=== PATIENT | male | born 1980 | race Caucasian/White ===

== ENCOUNTER 2016-10-07 12:10 | Outpatient (CLI) | payer MEDICAID | END 2016-10-07 12:11 | disposition home or self-care (01) | DX: J45.998 Other asthma (principal) ==

== ENCOUNTER 2017-06-03 15:41 | Outpatient (CLI) | payer MEDICAID | END 2017-06-03 15:42 | disposition critical access hospital (66) | LOC: EMS 15:41 | PROVIDERS: ATTEND Surgery | DX: R55 Syncope and collapse (principal); T63.441A Toxic effect of venom of bees, accidental (unintentional), initial encounter; Y92.511 Restaurant or cafe as the place of occurrence of the external cause; Y99.0 Civilian activity done for income or pay | CPT/HCPCS: A0425; A0429 ==

== ENCOUNTER 2017-06-03 16:02 | Emergency (ER) | payer MEDICAID ==
[2017-06-03] MEDS ORDERED: diphenhydrAMINE INJ 50 MG/ML VIAL IVP STA (16:12)
[2017-06-03] MEDS ORDERED: methylPREDNISolone SUCCINATE 125 MG/2 ML VIAL IVP STA (16:12)
--- NOTE | 2017-06-03 16:12 | ED Physician Documentation ---
History of Present Illness - Stated complaint Stated Complaint: BEE STING - Chief complaint Chief Complaint: General - History obtained from History obtained from: Patient, EMS - History of Present Illness Timing: Other (He was stung by a bee to the right ring finger, he has no significant history of anaphylaxis to bee stings but he developed significant diaphoresis and hypotension, down to 80/40 and was treated with epinephrine and route with resolution of his symptoms. There was never any shortness of breath or rash or angioedema. He is wheezy, but he says he is always wheezing.) Review of Systems Constitutional: denies: Fever, Chills Nose: denies: Rhinorrhea / runny nose, Congestion GI: denies: Abdominal Pain, Abdominal Swelling, Nausea, Vomiting, Diarrhea : reports: Reviewed and negative Skin: reports: Reviewed and negative PD PAST MEDICAL HISTORY - Past Medical History Respiratory: Asthma - Past Surgical History Past Surgical History: No - Present Medications Home Medications: Ambulatory Orders Medication Instructions Recorded Confirmed Epinephrine [Epipen 2-Neal] 0.3 mg IJ ONCE PRN #1 unit 06/03/17 predniSONE [Deltasone] 60 mg PO DAILY 5 Days 06/03/17 - Allergies Allergies/Adverse Reactions: Allergies Allergy/AdvReac Type Severity Reaction Status Date / Time Penicillins Allergy Severe Respiratory Verified 02/17/13 12:42 - Social History Does the pt smoke?: Yes Smoking Status: Current every day smoker Does the pt drink ETOH?: No Does the pt have substance abuse?: No - Immunizations Immunizations are current?: No Immunizations: TDAP >10years/unknown - POLST Patient has POLST: No PD ED PE NORMAL - Vitals Vital signs reviewed: Yes - General General: Alert and oriented X 3, No acute distress - HEENT HEENT: PERRL, EOMI, Pharynx benign - Neck Neck: Supple, no meningeal sign, No bony TTP - Cardiac Cardiac: RRR, No murmur - Respiratory Respiratory: No respiratory distress, Other (Mild expiratory wheezes) - Abdomen Abdomen: Soft, Non tender - Derm Derm: Normal color, Warm and dry - Extremities Extremities: No edema, No calf tenderness / cord - Neuro Neuro: Alert and oriented X 3, Normal speech - Psych Psych: Normal mood, Normal affect Results - Vitals Vitals: Vital Signs - 24 hr 06/03/17 06/03/17 06/03/17 16:02 17:32 18:13 Temperature 36.4 C L Heart Rate 81 73 74 Respiratory 24 20 Rate Blood Pressure 127/75 117/55 L 132/91 H O2 Saturation 100 93 98 Oxygen O2 Source Room air - EKG (time done) 1615 Rate: Rate (enter#) (75) Rhythm: NSR [place]: Normal Intervals: Normal [place] QRS: Normal Ischemia: Normal ST segments Computer interpretation: Agree with computer PD MEDICAL DECISION MAKING - ED course ED course: 36-year-old gentleman with hypotension after a hymenoptera sting, consistent with anaphylaxis. He was treated prior to arrival with IV fluids and epinephrine IM with resolution. We will add on IV steroids and Benadryl and observe him for several hours. Throughout several hours of observation he had no recurrent symptoms or findings on physical examination. Departure - Departure Disposition: 01 Home, Self Care Clinical Impression: Bee sting-induced anaphylaxis Qualifiers: Encounter type: initial encounter Injury intent: accidental or unintentional Qualified Code(s): T63.441A - Toxic effect of venom of bees, accidental ( unintentional), initial encounter Condition: Good Record reviewed to determine appropriate education?: Yes Instructions: ED Anaphylaxis General, EpiPen Auto Injector Dc Prescriptions: predniSONE [Deltasone] 60 mg PO DAILY 5 Days Epinephrine [Epipen 2-Neal] 0.3 mg IJ ONCE PRN #1 unit PRN Reason: Allergy Symptoms Comments: Call your doctor to arrange a follow-up appointment, make the next available appointment. In the interim, return anytime if worse or if new symptoms develop. Your blood pressure was elevated today on check into the emergency department. This does not mean that you have hypertension, it is a common phenomenon to come to the emergency department and have elevated blood pressure. I recommend that she see your primary care physician within the week to have it rechecked when you are feeling better.
[2017-06-03] MEDS ORDERED: methylPREDNISolone SUCCINATE 125 MG/2 ML VIAL ONE (16:23)
[2017-06-03] MEDS ORDERED: diphenhydrAMINE INJ 50 MG/ML VIAL ONE (16:23)
[2017-06-03 18:52] VITALS: BP 140/90
== END 2017-06-03 18:52 | disposition home or self-care (01) ==
LOC: EDUNIT# → ED 16:02
DX: T63.441A Toxic effect of venom of bees, accidental (unintentional), initial encounter (principal); R03.0 Elevated blood-pressure reading, without diagnosis of hypertension; F17.200 Nicotine dependence, unspecified, uncomplicated
CPT/HCPCS: 93005; 96374; 96375; 99284

== ENCOUNTER 2018-07-29 22:25 | Inpatient (IN) | payer MEDICAID ==
[2018-07-29] MEDS ORDERED: SODIUM CHLORIDE 0.9% 1,000 ML IV ONE (22:35)
[2018-07-29] MEDS ORDERED: ASPIRIN CHEW 81 MG TABLET PO STA (22:35)
[2018-07-29] MEDS ORDERED: diltiaZEM INJ 5 MG/ML VIAL IVP STA ×2 (22:35→23:23)
[2018-07-29] MEDS ORDERED: diltiaZEM INJ 125 MG in DEXTROSE 5% 100 ML IV STA (22:35)
[2018-07-29] MEDS ORDERED: MORPHINE 2 MG/ML CARPUJECT IVP STA (22:35)
[2018-07-29 22:43] LABS: BASOPHILS # (AUTO) 0.1 10^3/uL (0.0-0.1); BASOPHILS % (AUTO) 0.5 %; EOSINOPHILS # (AUTO) 0.4 10^3/uL (0.0-0.7); EOSINOPHILS % (AUTO) 2.4 %; HGB - HEMOGLOBIN 16.2 g/dL (14.0-18.0); LYMPHOCYTES # (AUTO) 3.6 10^3/uL (1.5-3.5); LYMPHOCYTES % (AUTO) 21.4 %; MEAN CORPUSCULAR HEMOGLOBIN 29.4 pg (27.0-31.0); MEAN CORPUSCULAR HGB CONC 33.1 g/dL (32.0-36.0); MEAN CORPUSCULAR VOLUME 89.1 fL (80.0-94.0); MEAN PLATELET VOLUME 8.3 fL (7.4-11.4); MONOCYTES # (AUTO) 1.6 10^3/uL (0.0-1.0); MONOCYTES % (AUTO) 9.5 %; NEUTROPHILS # (AUTO) 11.1 10^3/uL (1.5-6.6); NEUTROPHILS % (AUTO) 66.2 %; PLT - PLATELET COUNT 317 10^3/uL (130-450); RED BLOOD COUNT 5.51 10^6/uL (4.70-6.10); RED CELL DISTRIBUTION WIDTH 12.7 % (12.0-15.0); WHITE BLOOD COUNT 16.8 x10^3/uL (4.8-10.8)
--- NOTE | 2018-07-29 22:54 | ED Physician Documentation ---
History of Present Illness - Stated complaint Stated Complaint: CP - Chief complaint Chief Complaint: Cardiac - Additonal information Additional information: 37-year-old male presents the emergency department with chest pain, shortness of breath and a racing heart. The patient's symptoms started this evening and are described as severe. No triggering factors or relieving factors. The patient has had a racing heart and palpitations intermittently for the past year. The patient has not had the symptoms investigated before. Review of Systems Constitutional: reports: Fatigue. denies: Fever Eyes: denies: Discharge Ears: denies: Ear pain Nose: denies: Congestion Throat: denies: Sore throat Cardiac: reports: Chest pain / pressure, Palpitations Respiratory: reports: Dyspnea GI: denies: Abdominal Pain : denies: Dysuria Skin: denies: Rash Musculoskeletal: denies: Neck pain Neurologic: denies: Generalized weakness Psychiatric: denies: Depressed Immunocompromised: denies: Chemotherapy PD PAST MEDICAL HISTORY - Past Medical History Respiratory: Asthma - Past Surgical History Past Surgical History: No - Present Medications Home Medications: Ambulatory Orders Medication Instructions Recorded Confirmed Epinephrine [Epipen 2-Neal] 0.3 mg IJ ONCE PRN #1 unit 06/03/17 predniSONE [Deltasone] 60 mg PO DAILY 5 Days tablet 06/03/17 - Allergies Allergies/Adverse Reactions: Allergies Allergy/AdvReac Type Severity Reaction Status Date / Time Penicillins Allergy Severe Respiratory Verified 07/29/18 23:05 bee sting Allergy Anaphylaxis Uncoded 07/29/18 23:05 - Social History Does the pt smoke?: Yes Smoking Status: Current every day smoker Does the pt drink ETOH?: No Does the pt have substance abuse?: No - Immunizations Immunizations are current?: No Immunizations: TDAP >10years/unknown - POLST Patient has POLST: No PD ED PE NORMAL - General General: Alert and oriented X 3. No: No acute distress (Patient appears uncomfortable) - HEENT HEENT: Atraumatic, PERRL, EOMI - Neck Neck: Supple, no meningeal sign - Cardiac Cardiac: Other (Irregular rhythm with tachycardia) - Respiratory Respiratory: No respiratory distress, Clear bilaterally - Abdomen Abdomen: Soft - Back Back: No CVA TTP - Derm Derm: Normal color - Extremities Extremities: No deformity, Normal ROM s pain, No edema - Neuro Neuro: Alert and oriented X 3, Normal speech - Psych Psych: Normal affect Results - Vitals Vitals: Vital Signs - 24 hr 07/29/18 07/29/18 07/29/18 22:28 22:44 22:51 Temperature 36.7 C Heart Rate 73 158 H 143 H Respiratory 20 19 20 Rate Blood Pressure 130/105 H 135/115 H 125/87 H O2 Saturation 99 100 95 07/29/18 07/29/18 07/29/18 22:52 23:03 23:11 Temperature Heart Rate 157 H 128 H 119 H Respiratory 16 18 18 Rate Blood Pressure 129/98 H 144/95 H 123/98 H O2 Saturation 96 96 95 07/29/18 07/29/18 07/29/18 23:22 23:28 23:32 Temperature Heart Rate 115 H 121 H 116 H Respiratory 16 21 15 Rate Blood Pressure 130/75 113/89 H 110/75 O2 Saturation 96 96 95 07/29/18 07/29/18 07/29/18 23:34 23:35 23:37 Temperature Heart Rate 100 95 79 Respiratory 15 14 Rate Blood Pressure 101/74 66/52 L 82/59 L O2 Saturation 94 95 07/29/18 07/29/18 07/29/18 23:40 23:46 23:54 Temperature Heart Rate 89 83 98 Respiratory 16 14 15 Rate Blood Pressure 92/63 93/58 L 95/71 O2 Saturation 94 95 95 07/30/18 07/30/18 07/30/18 00:00 00:09 00:14 Temperature Heart Rate 94 104 H 86 Respiratory 19 12 17 Rate Blood Pressure 100/74 105/85 H 113/87 H O2 Saturation 94 95 99 07/30/18 07/30/18 07/30/18 00:22 00:54 01:55 Temperature Heart Rate 99 91 122 H Respiratory 21 18 17 Rate Blood Pressure 102/76 104/72 117/82 H O2 Saturation 93 94 94 07/30/18 07/30/18 02:02 02:10 Temperature Heart Rate 123 H 109 H Respiratory 16 20 Rate Blood Pressure 111/92 H 116/80 O2 Saturation 94 92 Oxygen O2 Source Room air - EKG (time done) 22:34 Rate: Rate (enter#) Rhythm: Atrial fibrillation QRS: Normal Ischemia: Non specific changes Other comments: Other comments (Atrial fibrillation with rapid ventricular response and rate related changes) - Labs Labs: Laboratory Tests 07/29/18 07/29/18 07/29/18 22:39 22:39 22:39 WBC 16.8 H RBC 5.51 Hgb 16.2 Hct 49.1 MCV 89.1 MCH 29.4 MCHC 33.1 RDW 12.7 Plt Count 317 MPV 8.3 Neut # (Auto) 11.1 H Lymph # (Auto) 3.6 H [place] # (Auto) 1.6 H Eos # (Auto) 0.4 Baso # (Auto) 0.1 Absolute Nucleated RBC 0.01 Nucleated RBC % 0.1 D-Dimer Sodium 136 Potassium 3.4 L Chloride 99 L Carbon Dioxide 27 Anion Gap 10.0 BUN 14 Creatinine 1.0 Estimated GFR (MDRD) 83 L Glucose 112 H Calcium 9.1 Total Bilirubin 0.6 AST 66 H ALT 147 H Alkaline Phosphatase 95 Troponin I < 0.04 Total Protein 7.7 Albumin 4.4 Globulin 3.3 Albumin/Globulin Ratio 1.3 Lipase 48 TSH Free T4 Ethyl Alcohol < 5.0 07/29/18 07/29/18 07/29/18 22:39 22:39 22:39 WBC RBC Hgb Hct MCV MCH MCHC RDW Plt Count MPV Neut # (Auto) Lymph # (Auto) [place] # (Auto) Eos # (Auto) Baso # (Auto) Absolute Nucleated RBC Nucleated RBC % D-Dimer 219.7 Sodium Potassium Chloride Carbon Dioxide Anion Gap BUN Creatinine Estimated GFR (MDRD) Glucose Calcium Total Bilirubin AST ALT Alkaline Phosphatase Troponin I Total Protein Albumin Globulin Albumin/Globulin Ratio Lipase TSH 1.48 Free T4 0.77 Ethyl Alcohol - Rads (name of study) CTA chest Radiology: Final report received, See rad report (1. No pulmonary emboli seen. 2. Borderline heart size with coronary artery calcifications and possible Trace interstitial fluid) PD MEDICAL DECISION MAKING - ED course ED course: The patient was given a second bolus to help control his heart rate, this unfortunately made the patient hypotensive. The patient was given IV fluids and placed in Trendelenburg. The patient was awake and alert during this episode. This was transient. Once the patient's blood pressure returned to normal his heart rate climbed back up into the mid 100s, the patient was placed back on a drip. The patient will require admission to the hospital for ongoing management of his acute atrial fibrillation with rapid ventricular response. The findings and plan were discussed the patient who understands and agrees to the plan. The case was discussed with the hospitalist Dr. Parada who accepts the patient onto his service. Departure - Departure Disposition: ED Place in Observation Clinical Impression: Atrial fibrillation with RVR
[2018-07-29 22:56] LABS: ALBUMIN 4.4 g/dL (3.2-5.5); ALBUMIN/GLOBULIN RATIO 1.3 (1.0-2.2); ALKALINE PHOSPHATASE 95 IU/L (42-121); ALT ALANINE AMINOTRANSFERASE 147 IU/L (10-60); AST ASPARTATE AMINOTRANSFERASE 66 IU/L (10-42); BILIRUBIN,TOTAL 0.6 mg/dL (0.2-1.0); BUN - BLOOD UREA NITROGEN 14 mg/dL (6-20); CALCIUM 9.1 mg/dL (8.5-10.3); CARBON DIOXIDE - CO2 27 mmol/L (21-32); CHLORIDE 99 mmol/L (101-111); GFR - MDRD 83 (>89); GLUCOSE 112 mg/dL (70-100); LIPASE 48 U/L (22-51); SODIUM 136 mmol/L (135-145); TOTAL PROTEIN 7.7 g/dL (6.7-8.2)
--- NOTE | 2018-07-29 23:08 | XRAY Report ---
Reason: chest pain Procedure Date: 07/29/2018 Accession Number: [id number] / [id number] Procedure: XR - Chest 1 View X-Ray CPT Code: 77088 FULL RESULT: EXAM: CHEST RADIOGRAPHY EXAM DATE: 07/29/2018 10:59 PM. CLINICAL HISTORY: Chest pain. COMPARISON: CHEST 2 VIEW PA/LAT 10/07/2016 12:24 PM. TECHNIQUE: 1 view. FINDINGS: Lungs/Pleura: Low volumes. No definite pneumonia or edema. No gross pneumothorax or large effusion. Mediastinum: Within exam limitations, cardiomediastinal contour is normal. Other: None. IMPRESSION: Mildly hypoventilatory single view chest without definite acute process. RADIA
[2018-07-29] MEDS ORDERED: ENOXAPARIN 100 MG/ML SYRINGE SUBQ STA (23:23)
[2018-07-30] MEDS ORDERED: IOPAMIDOL-300 100 ML VIAL ONE (01:01)
[2018-07-30] MEDS ORDERED: IOPAMIDOL-300 100 ML VIAL IVP ONE (01:52)
[2018-07-30] MEDS ORDERED: SODIUM CHLORIDE FLUSH 0.9% 10 ML SYRINGE IVP PRN (02:07)
[2018-07-30] MEDS ORDERED: ALBUTEROL NEB 2.5 MG/3 ML INH PRN (02:07)
[2018-07-30] MEDS ORDERED: HYDROcod/ACETAM 5/325 MG TABLET PO PRN (02:07)
[2018-07-30] MEDS ORDERED: MORPHINE 2 MG/ML CARPUJECT IVP PRN (02:07)
[2018-07-30] MEDS ORDERED: ONDANSETRON ODT 4 MG TABLET TL PRN (02:07)
--- NOTE | 2018-07-30 02:12 | CT Report ---
Reason: chest pain, soa, increased d-dimer Procedure Date: 07/30/2018 Accession Number: [id number] / [id number] Procedure: CT - Chest Angio (PE) CPT Code: FULL RESULT: EXAM: CT ANGIOGRAM CHEST EXAM DATE: 07/30/2018 01:57 AM. CLINICAL HISTORY: Chest pain and shortness of breath. Elevated d-dimer. COMPARISON: None. TECHNIQUE: Routine helical imaging was performed through the chest in the pulmonary arterial phase. IV Contrast: ISOVUE 300 80mL. Reconstructions: Coronal 3-D MIP reconstructions.Sagittal and coronal. In accordance with CT protocol optimization, one or more of the following dose reduction techniques were utilized for this exam: automated exposure control, adjustment of mA and/or KV based on patient size, or use of iterative reconstructive technique. FINDINGS: Pulmonary Arteries: Diagnostic quality: Adequate through the segmental arteries. No evidence for acute or chronic pulmonary emboli. No evidence of right heart strain. Lungs/Pleura: Bibasilar atelectasis. Possible trace interstitial edema. No pleural effusion. No pneumothorax. Mediastinum: Heart size upper normal. Coronary artery calcifications. Borderline sized bilateral hilar lymph nodes. Thoracic Aorta: Not well enhanced. No aortic aneurysm seen. Upper Abdomen: Fatty liver. Other: None. IMPRESSION: 1. No pulmonary emboli seen. 2. Borderline heart size with coronary artery calcifications and possible trace interstitial edema. 3. Fatty liver. RADIA
[2018-07-30 02:49] LABS: MUDS CUTOFF CONCENTRATIONS CUTOFF CONC BELOW:
[2018-07-30 03:01] LABS: AMPHETAMINE SCREEN,URINE NEGATIVE (NEGATIVE); BENZODIAZEPINES SCREEN, URINE NEGATIVE (NEGATIVE); COCAINE SCREEN URINE NEGATIVE (NEGATIVE); METHADONE SCREEN, URINE NEGATIVE (NEGATIVE); METHAMPHETAMINES SCREEN, URINE NEGATIVE (NEGATIVE); OPIATE SCREEN, URINE POSITIVE (NEGATIVE); OXYCODONE SCREEN, URINE NEGATIVE (NEGATIVE); PROPOXYPHENE SCREEN, URINE NEGATIVE (NEGATIVE); TRICYCLIC ANTIDEPRESSANT,URINE NEGATIVE (NEGATIVE)
[2018-07-30] MEDS: diltiaZEM INJ 125 MG in DEXTROSE 5% 100 ML IV SCH ×3 (03:15→19:46)
--- NOTE | 2018-07-30 03:32 | HISTORY & PHYSICAL EXAMINATION ---
Chief Complaint - Chief Complaint Chief Complaint: Chest pain History of Present Illness - Admitted From Admitted From:: ED - History Obtained From Records Reviewed: ED History obtained from: Patient Exam Limitations: None - History of Present Illness HPI Comment/Other: Patient is a 37-year-old male with no significant past medical history known to him who presents with a chief complaint of chest pain with radiation to the left arm that started earlier today without any known provocation as he was walking around his house. Patient had been complaining of on and off palpitations for the last year or so, but feels that today it is significantly different.He has a history of asthma remotely which has more recently been more active, he is been using his daughter's rescue inhaler and has been experiencing some mild sh ortness of breath. He also had a subjective sinus infection last week, but otherwise has no known triggers for either of the chest pain or the palpitation. He denies association with exertion. 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 In the emergency room he was evaluated for the chest pain and palpitations and an EKG demonstrated atrial fibrillation with rapid ventricular response with initial heart rate in the 160s. The patient was given a loading dose of diltiazem, which was then transitioned to a Cardizem drip. The patient initially tolerated this well but his heart rate started to increase over the 130s and he was given a second bolus in the ED which dropped his blood pressures necessitating IV fluid resuscitation. This has since stabilized and the patient is now on a Cardizem drip of 5. Patient reports that the pain initially improve d when the heart rate was dropped however states that it has since returned and generally he continues to feel uncomfortable. Because of the associated shortness of breath and an elevated d-dimer, patient was sent to CT scan of the chest for PE protocol which came back negative for PE but does show some calcifications of the coronary arteries.His lab work is generally unremarkable with the exception of a white blood cell count of 16 and the aforementioned d-dimer. Chest x-ray is relatively unremarkable. Patient denies any symptoms of CHF such as bilateral lower extremity edema or orthopnea. He has no known previous history of atrial fibrillation, arrhythmia, or other cardiac disease. He does however admit to drinking 3-4 beers per day. He denies any known history of withdrawal but also admits he is never gone several days without drinking since achieving this amount of alcohol consumption. He also reports smoking marijuana nearly continuously as well as smoking 1 pack of cigarettes per day. History - Past Medical History Cardiovascular: denies: None Respiratory: reports: Asthma Neuro: denies: None Endocrine/Autoimmune: denies: None GI: denies: None Psych: denies: None Musculoskeletal: denies: None MRSA Hx?: No - Family & Social History Family History: Father: Cancer (Lung) Living arrangement: At home Living Situation: With spouse/s.o., With family (Patient is a father of a 3-year-old girl) - Substance History Use: Uses substance without health or social issues: Tobacco, Alcohol, Cannabis Abuse: Recurrent use of substance despite neg consequences: Alcohol Dependence: Experiences withdrawal or developed tolerances: NONE Tobacco Details: Cigarettes - POLST Patient has POLST: No POLST Status: Full Code Meds/Allgy - Home Medications Home Medications: Ambulatory Orders Medication Instructions Recorded Confirmed Epinephrine [Epipen 2-Neal] 0.3 mg IJ ONCE PRN #1 unit 06/03/17 predniSONE [Deltasone] 60 mg PO DAILY 5 Days tablet 06/03/17 - Allergies Allergies/Adverse Reactions: Allergies Allergy/AdvReac Type Severity Reaction Status Date / Time Penicillins Allergy Severe Respiratory Verified 07/29/18 23:05 bee sting Allergy Anaphylaxis Uncoded 07/29/18 23:05 Review of Systems - Constitutional Constitutional: denies: Fever, Chills, Diaphoresis, Weight gain, Weight loss - Cardiovascular Cariovascular: reports: Irregular heart rate, Palpitations, Chest pain. denies: Edema, Orthopnea - Respiratory Respiratory: reports: SOB at rest, SOB with exertion. denies: Cough - Gastrointestinal Gastrointestinal: denies: Abdominal pain Prior Level of Functionality: Independent Exam - Vital Signs Reviewed Vital Signs: Yes Vital Signs: Vital Signs x48h Temp Pulse Resp BP Pulse Ox 07/30/18 02:32 126 H 16 117/87 H 93 07/30/18 02:10 109 H 20 116/80 92 07/30/18 02:02 123 H 16 111/92 H 94 07/30/18 01:55 122 H 17 117/82 H 94 07/30/18 00:54 91 18 104/72 94 07/30/18 00:22 99 21 102/76 93 07/30/18 00:14 86 17 113/87 H 99 07/30/18 00:09 104 H 12 105/85 H 95 07/30/18 00:00 94 19 100/74 94 07/29/18 23:54 98 15 95/71 95 07/29/18 23:46 83 14 93/58 L 95 07/29/18 23:40 89 16 92/63 94 07/29/18 23:37 79 82/59 L 07/29/18 23:35 95 14 66/52 L 95 07/29/18 23:34 100 15 101/74 94 07/29/18 23:32 116 H 15 110/75 95 07/29/18 23:28 121 H 21 113/89 H 96 07/29/18 23:22 115 H 16 130/75 96 07/29/18 23:11 119 H 18 123/98 H 95 07/29/18 23:03 128 H 18 144/95 H 96 07/29/18 22:52 157 H 16 129/98 H 96 07/29/18 22:51 143 H 20 125/87 H 95 07/29/18 22:44 158 H 19 135/115 H 100 07/29/18 22:28 36.7 C 73 20 130/105 H 99 - Physical Exam General Appearance: positive: Mild distress Eyes Bilateral: positive: Normal inspection Neck: positive: Nml inspection, Thyroid nml Respiratory: positive: Chest non-tender, No respiratory distress, Breath sounds nml. negative: Wheezes, Rales, Rhonchi Cardiovascular: positive: No murmur, No gallop, Irregularly irregular, Tachycardia Peripheral Pulses: positive: 2+ Abdomen: positive: Non-tender, No organomegaly, Nml bowel sounds, No distention Skin: positive: Color nml Extremities: positive: Non-tender, No pedal edema Neurologic/Psychiatric: positive: Oriented x3 Conclusion/Plan - Problem List (1) Atrial fibrillation with RVR Conclusion/Plan: The trigger for the patient's atrial fibrillation not quite known at this point. However, he is certainly in true atrial fibrillation with a rapid ventricular response requiring infusion therapy of Cardizem, requiring ICU placement. We will continue the Cardizem drip initiated in the emergency department, closely monitoring blood pressure and heart rate. Once heart rate is controlled can con vert to oral Cardizem. Given his young age, and the presumed new diagnosis, he may be a candidate for anticoagulation. An echocardiogram has been ordered for the morning to evaluate for the underlying cause and will likely need a referral to cardiology outpatient upon discharge. (2) Chest pain Conclusion/Plan: Pain is secondary to increased heart rate, as it does seem to improve when heart rate is better controlled. We will repeat one more set of cardiac enzymes to rule out any increase in troponin levels, have also ordered nitroglycerin given the findings of coronary calcifications on the CT scan. He may need a stress test but would recommend holding off until rate is better controlled. Qualifiers: Chest pain type: precordial pain Qualified Code(s): R07.2 - Precordial pain (3) Alcoholism /alcohol abuse Conclusion/Plan: Patient admits to heavy alcohol use but does not have any recollection of alcohol withdrawal. I will start with as needed Ativan and may need CIWA protocol pending clinical course. (4) Tobacco abuse Conclusion/Plan: Patient counseled to quit and provided nicotine patch (5) Asthma Conclusion/Plan: Patient does not currently using an inhaled corticosteroid, will provide albuterol as needed Qualifiers: Asthma severity: unspecified severity Asthma persistence: intermittent Asthma complication type: uncomplicated Qualified Code(s): J45.20 - Mild intermittent asthma, uncomplicated (6) Elevated transaminase level Conclusion/Plan: 2 potential etiologies include fatty liver as seen on the CT scan as well as alcoholism. Could consider hepatitis panel but given the 2 likely sources will hold off on this for now outpatient as this would not likely change the hospital course. - Lab Results Fish Bones: 07/29/18 22:39 07/29/18 22:39 - Diagnostic Imaging Results Diagnostic Imaging Results: positive: Final report reviewed, Read independently - EKG Results EKG Interpreted Independently: Yes EKG Comparison: No prior EKG Core Measures - Anticipated LOS I expect patient to be DC'd or transferred within 96 hours.: Yes - DVT/VTE - Prophylaxis VTE/DVT Device ordered at admit?: Yes Not Ordered - Low Risk: Low Risk VTE/DVT Prophylaxis med ordered at admit?: Yes
[2018-07-30] MEDS: NITROGLYCERIN SL 0.4 MG TABLET SL PRN ×3 (03:53→04:27)
[2018-07-30] MEDS: LORazepam 0.5 MG TABLET PO PRN ×4 (04:06→20:02)
[2018-07-30] MEDS ORDERED: LORazepam 2 MG/ML VIAL IVP PRN (04:26)
[2018-07-30] MEDS ORDERED: LEVALBUTEROL 1.25 MG/3 ML NEB INH PRN (04:26)
[2018-07-30] MEDS ORDERED: LEVALBUTEROL 1.25 MG/3 ML NEB INH ONE (04:28)
[2018-07-30 04:59] LABS: ALBUMIN/GLOBULIN RATIO 1.4 (1.0-2.2); BILIRUBIN,TOTAL 0.8 mg/dL (0.2-1.0); CALCIUM 8.6 mg/dL (8.5-10.3); CREATININE 0.8 mg/dL (0.6-1.2); MAGNESIUM 1.9 mg/dL (1.7-2.8); PHOSPHORUS 3.4 mg/dL (2.5-4.6); TOTAL PROTEIN 6.8 g/dL (6.7-8.2)
[2018-07-30 05:01] LABS: CHOL/HDL RATIO 3.1 (<5.0); CHOLESTEROL 135 mg/dL; HDL CHOLESTEROL 44 mg/dL; LDL CHOLESTEROL,CALCULATED 69 mg/dL; LDL/HDL RATIO 1.6 (<3.6); VLDL CHOLESTEROL 22 mg/dL
[2018-07-30] MEDS: NICOTINE 14 MG PATCH TOP SCH (08:19)
[2018-07-30] MEDS: FAMOTIDINE 20 MG TABLET PO SCH ×2 (08:19→20:02)
[2018-07-30] MEDS: SODIUM CHLORIDE FLUSH 0.9% 10 ML SYRINGE IVP SCH ×2 (08:20→19:46)
[2018-07-30] MEDS: IBUPROFEN 400 MG TABLET PO PRN ×3 (08:36→20:02)
[2018-07-30] MEDS ORDERED: ENOXAPARIN 40 MG/0.4 ML SYRINGE SUBQ SCH (09:00)
[2018-07-30] MEDS: ASPIRIN EC 325 MG TABLET PO SCH (15:50)
[2018-07-30] MEDS: CARVEDILOL 12.5 MG TABLET PO SCH ×2 (15:51→20:03)
--- NOTE | 2018-07-30 17:01 | Discharge Plan ---
Discharge Plan Disposition: 02 Transfer Acute Care Hosp No Smoking: If you smoke, Please STOP! Call for help. Follow-up with: EROS DAVISON [Primary Care Provider] -
--- NOTE | 2018-07-30 17:18 | PROVIDER PROGRESS NOTE ---
Hospitalist Cross-cover Note - Cross-Cover Note Cross-Cover Note: The patient reported to me: He was told of being HTN but took no meds for 1 and 1/2 years. He had no W/U for his "palpitations" which he has had for 1 year. There has been no further CP since the last one at 3 am. Echo shows LVEF 25%. This may be from global coronary ischemia, tachycardia- induced, from untreated HTN, or alcoholic cardiomyopathy. Will increase Lovenox to therapeutic dose, for angina and Afib (CHADS score= 2, for CHF and HTN). Will add Coreg, start ASA, YUAN and Spironolactone. Will arrange for transfer for a coronary angio. I discussed all the above with Pt and answered his questions to his satisfaction.
[2018-07-30] MEDS: LISINOPRIL 5 MG TABLET PO SCH (18:14)
[2018-07-30] MEDS: ENOXAPARIN 80 MG/0.8 ML SYRINGE SUBQ SCH (20:03)
[2018-07-30] MEDS ORDERED: ENOXAPARIN 80 MG/0.8 ML SYRINGE SUBQ SCH (21:00)
[2018-07-31] MEDS: SODIUM CHLORIDE FLUSH 0.9% 10 ML SYRINGE IVP SCH ×3 (00:51→18:17)
[2018-07-31 04:51] LABS: ALBUMIN 3.4 g/dL (3.2-5.5); ALBUMIN/GLOBULIN RATIO 1.2 (1.0-2.2); BILIRUBIN,TOTAL 1.1 mg/dL (0.2-1.0); CALCIUM 8.7 mg/dL (8.5-10.3); CREATININE 0.7 mg/dL (0.6-1.2); MAGNESIUM 2.1 mg/dL (1.7-2.8); PHOSPHORUS 2.7 mg/dL (2.5-4.6); TOTAL PROTEIN 6.3 g/dL (6.7-8.2)
[2018-07-31] MEDS: LORazepam 0.5 MG TABLET PO PRN (08:08)
[2018-07-31] MEDS: FAMOTIDINE 20 MG TABLET PO SCH (08:09)
[2018-07-31] MEDS: ASPIRIN EC 325 MG TABLET PO SCH (08:10)
[2018-07-31] MEDS: CARVEDILOL 12.5 MG TABLET PO SCH (08:10)
[2018-07-31] MEDS: IBUPROFEN 400 MG TABLET PO PRN (08:10)
[2018-07-31] MEDS: NICOTINE 14 MG PATCH TOP SCH (08:12)
[2018-07-31] MEDS: ENOXAPARIN 80 MG/0.8 ML SYRINGE SUBQ SCH (10:33)
--- NOTE | 2018-07-31 15:19 | CARDIAC PROCEDURE NOTE ---
DATE OF SERVICE: 07/31/2018 Physician: Lily Nice MD INDICATION: Chest pain. CARDIAC RISK FACTORS 1. Male gender. 2. Smoking history. 3. Possible hypertension history. 4. Unknown cholesterol status. After signing informed consent, the patient performed exercise testing on a Ino protocol along with nuclear myocardial imaging. Resting heart rate 105, in atrial fibrillation. Peak heart rate 158, in atrial fibrillation (87% predicted maximum heart rate for age). Resting blood pressure 140/80, peak blood pressure 160/80. RESTING EKG: Atrial fibrillation with a rate of 105, right axis deviation, LVH voltage, scooping ST segments inferolaterally, flat T-waves in leads II, III, aVF and V3 through V6. The patient exercised for 3 minutes and 25 seconds on a Ino protocol. He achieved a peak heart rate of 156 (87% PMHR), and 5 METS. The patient had mild to moderate shortness of breath at peak, no chest pain during the test. Normal heart rate and blood pressure response to exercise. Shortness of breath resolved after 2-3 minutes of recovery. PEAK EKG: No new ST segment or T-wave changes. IMPRESSION 1. Poor exercise tolerance. 2. Atrial fibrillation with rapid ventricular response. 3. Abnormal resting EKG with respect to ST and T-waves; therefore cannot comment on any new ischemic EKG changes. 4. Nuclear images reported separately. cc: Pavel Campbell MD TD: 07/31/2018 15:06 MTDD
--- NOTE | 2018-07-31 16:27 | Nuclear Medicine Report ---
Reason: CP,Cardiomyopathy Procedure Date: 07/31/2018 Accession Number: [id number] / [id number] Procedure: NM - Myocardial Perfusion STR/RST CPT Code: FULL RESULT: EXAM: SINGLE-ISOTOPE EXERCISE STRESS TEST. SINGLE-ISOTOPE AND ONE-DAY REST/STRESS MYOCARDIAL PERFUSION SCANS WITH TOMOGRAPHIC IMAGING, QUANTITATIVE ANALYSIS, WALL MOTION ANALYSIS AND CALCULATION OF EJECTION FRACTION. EXAM DATE: 07/31/2018 04:04 PM. CLINICAL HISTORY: Chest pain, cardiomyopathy. COMPARISON: None available. TECHNIQUE: A rest myocardial perfusion scan was done with tomography after the intravenous administration of 9.8 mCi Tc-99m sestamibi. After an appropriate delay, a treadmill exercise stress was performed according to department protocol. The patient exercised for 3 minutes and 25 seconds. The maximum heart rate was 158 bpm, which was 87% of the maximum predicted heart rate of 181 bpm. At approximately peak heart rate, 40.3 mCi of Tc-99m sestamibi was injected for stress myocardial perfusion scan. Motion correction was applied when appropriate. Gated tomographic images were obtained for wall motion analysis and computation of left ventricular ejection fraction. FINDINGS: EKG findings are reported separately. There is a moderate severity fixed apical perfusion defect. There is a mild severity fixed defect in the distal anteroseptal wall. No convincing significant reversible perfusion defects. Computer analysis: Summed stress score 10 Summed rest score 7 Summed difference score 3 Wall motion analysis demonstrates diffuse hypokinesis. The left ventricular end-diastolic volume is 174 cc. The left ventricular end-systolic volume is 131 cc. The left ventricular ejection fraction is calculated to be 25%. IMPRESSION: 1. Moderate severity fixed apical perfusion defect. Mild severity fixed defect in the distal anteroseptal wall. No convincing significant reversible perfusion defects based on visual analysis. 2. Abnormal left ventricular ejection fraction of 25%. 3. Diffuse hypokinesis. 4. Dilated left ventricle. 5. Based on computer analysis, moderately abnormal study with mild ischemia. RADIA
--- NOTE | 2018-07-31 16:51 | Discharge Plan ---
Discharge Plan Disposition: Home, Self Care Condition: Fair Prescriptions: Nitroglycerin [Nitrostat] 0.4 mg SL Q5MIN PRN #100 tablet PRN Reason: Chest Pain Albuterol Sulfate [Proair Hfa Inhaler] 2 puffs INH BID PRN #1 hfa.aer.ad PRN Reason: SOA Apixaban [Eliquis] 5 mg PO BID #60 tablet Aspirin [Aspirin EC] 81 mg PO DAILY #30 tablet. Atorvastatin [Lipitor] 10 mg PO QPM #30 tablet Carvedilol [Coreg] 12.5 mg PO BID #60 tablet Lisinopril [Zestril] 2.5 mg PO QPM #15 tablet LORazepam [Ativan] 1 mg PO Q12H PRN #4 tablet PRN Reason: Anxiety Nicotine 14 mg Patch [Nicoderm] 1 patch TOP DAILY #14 patch Spironolactone 12.5 mg PO MOWEFR #15 tablet Diet: Cardiac Activity Restrictions: No heavy lifting, no stair climbing Shower Restrictions: No Driving Restrictions: No Instruction Topics: Heart Failure, Heart Failure Warning Signs, Heart Failure Tracking Weight, Heart Failure Diet Changes, Heart Failure Evaluate, Atrial Fibrillation, Stroke Prevent Live W Atrial Fib, CAD, Nitroglycerin sublingual tablets Additional Instructions or Follow Up instructions: You were admitted with chest pain, new Afib and tests showed you have a weak he art muscle and abnormal stress test, which means you most likely have coronary artery blockages. You have been started on new medications for your heart and the abnormal heart rhythm. It is important that you take these as prescribed and that you stop smoking cigarettes and stop drinking alcohol in excess. You should see your PCP in follow-up WITHIN A WEEK, for possible medication adjustments and to be referred to a [employer] Consultant and for an outpatient coronary angiogram. Until you have the coronary angiogram you should restrict your activities to slow walking, standing is OK with the ability to sit whenever you are fatigued and you should not carry anything >10 lbs and you may NOT climb flights of stairs whatsoever. If you have new or worsening symptoms, come to the ER. No Smoking: If you smoke, Please STOP! Call for help. Follow-up with: EROS DAVISON [Primary Care Provider] -
[2018-07-31] MEDS ORDERED: INSULIN ASPART 300 UNIT/3 ML PEN SUBQ SCH (17:00)
[2018-07-31] MEDS: LISINOPRIL 5 MG TABLET PO SCH (17:16)
[2018-07-31 18:25] VITALS: BP 107/77
--- NOTE | 2018-08-05 14:33 | DISCHARGE SUMMARY ---
Physician: Lily Nice MD DATE OF ADMISSION: 07/30/2018 DATE OF DISCHARGE: 07/31/2018 HISTORY OF PRESENT ILLNESS: This is a 37-year-old white male with a history of smoking, remote methamphetamine abuse, heavy alcohol use, asthma in childhood, and possible hypertension. The patient presented with complaints of chest pain with radiation to the left arm that occurred while he was walking. He also reported palpitations that occurred on and off for a year, but he has had no medical evaluation of those. He reported his last doctor's visit was a year and a half ago, and he was told he had hypertension, but has not been on any blood pressure medicines. He denied any dyspnea on exertion, orthopnea, leg edema, dizziness complaints or syncope. In the emergency room, he was found to be in Afib with a rapid rate, and he was treated with IV diltiazem and required an IV diltiazem drip and was admitted to the ICU. HOSPITAL COURSE AND DISCHARGE DIAGNOSES 1. Atrial fib with rapid ventricular response (RVR). There had been no prior history of Afib, therefore this was considered new onset, but, because he had a description of palpitations, the Afib may have occurred in his past. He was placed on the diltiazem drip and also started on oral medications for heart control. The diltiazem was tapered to off by the second day and he was also started on Eliquis, carvedilol, and was advised to have further cardiac followup. 2. Chest pain. The patient had no further episodes of chest pain as his heart rate became under control. The patient did have troponin labs done that were not detectable (less than 0.04) x3. He had an inpatient stress test with treadmill exercise and nuclear imaging. He was able to achieve 87% PMHR and 5 METs and had moderate shortness of breath but no chest pain. The nuclear report, however, showed a moderate fixed apical perfusion defect, mild fixed defect in the distal anteroseptal wall, and moderately abnormal study with mild ischemia. Of note, were findings of diffuse hypokinesis, a dilated left ventricle, and an EF of 25%. He also had lipid testing done that showed a total cholesterol of 135, LDL 69, HDL 22, and triglycerides 112. He was started on a statin. 3. Acute systolic heart failure, [place] Heart Association class II. The patient had an Echo done (even before the stress testing), which also showed LV dilation, global hypokinesis, and EF of 25%. He was started on escalating doses of Carvedilol, an YUAN inhibitor, Lovenox at therapeutic doses until he ruled out, daily aspirin, and low-dose statin. With the results of the stress test as described above, he should undergo outpatient angiography for further coronary artery disease evaluation. The patient was advised to have light activity until seen by a Metal Products Viewer or until having the coronary angiogram. I reached out to the on-call Metal Products Viewer at [facility] in [place], where the patient was considering having his angiogram and Cardiology followup; that Metal Products Viewer and I discussed his case. Since he did not have elevated troponins, the patient was not transferred directly for an angiogram. The stress test was advised to be done here by that script manager (Dr. Mauricio). He also advised low-dose statin, good heart rate control, anticoagulation for at least a month and then to be considered for elective cardioversion. 4. Alcohol abuse. The patient reported intake of 4 or greater 12-ounce cans of beer every day. He was on a CIWA watch protocol while here, did not have any signs of withdrawal, and received Ativan only once for anxiety. The patient was advised to discontinue heavy alcohol use, which may be the etiology for his new cardiomyopathy. 5. Tobacco abuse. The patient was offered a nicotine patch while here. The patient was advised to stop smoking because of the cardiac results. He appeared motivated to do this as an outpatient. 7. Asthma. The patient reported intermittently using his young daughter's inhaler before this admission. He was prescribed his own rescue inhaler to use if needed. 8. Elevated liver function tests. The patient had admission AST of 66, ALT 147, and GGT of 92. There was a normal bilirubin and normal alkaline phosphatase. These were presumed to be elevated from alcohol use or potentially a fatty liver. LABORATORIES AND IMAGING: Reviewed and summarized above. CONDITION AT DISCHARGE: Stable. PHYSICAL EXAMINATION VITAL SIGNS: Blood pressure 104/88, pulse of 87-108, in Afib. Afebrile. Room air saturation 96%. HEENT: Dark bags under his eyes, moist oral mucosa, poor dentition. NECK: Without JVD or carotid bruits. CHEST: Clear. HEART: Sounds normal. ABDOMEN: Soft. No organomegaly. No tenderness. EXTREMITIES: No clubbing, cyanosis, edema. NEUROLOGIC: Intact. FOLLOWUP: Patient was given detailed instructions, and to have followup with his PCP within a week, and for referral to a Metal Products Viewer and for a coronary angiogram. CODE STATUS: FULL CODE. TIME REQUIRED TO COMPLETE THIS ENTIRE DISCHARGE, CHART REVIEW, PATIENT EDUCATION, PRESCRIPTION MEDICATIONS, DICTATION: 60 minutes. cc: Pavel Campbell MD TD: 08/05/2018 13:01 MTDD
== END 2018-07-31 18:00 | disposition home or self-care (01) | DRG 308 ==
LOC: ED 22:25 → ICU 07-30 02:08
PROVIDERS: ADMIT Family Medicine Sports Medicine; ATTEND Internal Medicine
DX: I48.91 Unspecified atrial fibrillation (principal); I50.21 Acute systolic (congestive) heart failure; R07.2 Precordial pain; I95.2 Hypotension due to drugs; T46.1X5A Adverse effect of calcium-channel blockers, initial encounter; Y92.238 Other place in hospital as the place of occurrence of the external cause; I11.0 Hypertensive heart disease with heart failure; I25.119 Atherosclerotic heart disease of native coronary artery with unspecified angina pectoris; I42.9 Cardiomyopathy, unspecified; F10.10 Alcohol abuse, uncomplicated; F41.9 Anxiety disorder, unspecified; F17.210 Nicotine dependence, cigarettes, uncomplicated; J45.20 Mild intermittent asthma, uncomplicated; K76.0 Fatty (change of) liver, not elsewhere classified; Z87.898 Personal history of other specified conditions
CPT/HCPCS: 36415; 71045; 71275; 78452; 80048; 80053; 80061; 80306; 80320; 82977; 83690; 83721; 83735; 84100; 84439; 84443; 84484; 85025; 85379; 87150; 93005; 93017; 93306; 94640; 96365; 96375; 96376; 99284; 99285

== ENCOUNTER 2019-07-17 11:30 | Emergency (ER) | payer OTHER, MEDICAID ==
[2019-07-17 11:50] VITALS: BP 118/81
--- NOTE | 2019-07-17 11:58 | ED Physician Documentation ---
History of Present Illness - Stated complaint Stated Complaint: RT FOREARM SWELLING - Chief complaint Chief Complaint: Ext Problem - History obtained from History obtained from: Patient - History of Present Illness Timing: Yesterday - Additonal information Additional information: This is a 38-year-old man who works at [employer]. He was out in the ice closet yesterday when a sarita of wind caught the door to the ice closet and slammed it shut on him. He sought coming and got his right arm up to block the blow. Did not hit him in his head and he was not knocked out. Denies numbness or tingling into the fingers. Review of Systems Skin: reports: Abrasion (s), Other (Bruising and swelling) Musculoskeletal: reports: Extremity swelling Neurologic: denies: Generalized weakness, Numbness PD PAST MEDICAL HISTORY - Past Medical History Cardiovascular: MS, Atrial fibrillation Respiratory: Asthma : None HEENT: None Derm: None - Past Surgical History Past Surgical History: No - Present Medications Home Medications: Ambulatory Orders Medication Instructions Recorded Confirmed Albuterol Sulfate [Proair Hfa 2 puffs INH BID PRN #1 hfa.aer.ad 07/31/18 Inhaler] Apixaban [Eliquis] 5 mg PO BID #60 tablet 07/31/18 Aspirin [Aspirin EC] 81 mg PO DAILY #30 tablet. 07/31/18 Atorvastatin [Lipitor] 10 mg PO QPM #30 tablet 07/31/18 Carvedilol [Coreg] 12.5 mg PO BID #60 tablet 07/31/18 LORazepam [Ativan] 1 mg PO Q12H PRN #4 tablet 07/31/18 Lisinopril [Zestril] 2.5 mg PO QPM #15 tablet 07/31/18 Nicotine 14 mg Patch [Nicoderm] 1 patch TOP DAILY #14 patch 07/31/18 Nitroglycerin [Nitrostat] 0.4 mg SL Q5MIN PRN #100 tablet 07/31/18 Spironolactone 12.5 mg PO MOWEFR #15 tablet 07/31/18 - Allergies Allergies/Adverse Reactions: Allergies Allergy/AdvReac Type Severity Reaction Status Date / Time bee venom protein (honey bee) Allergy Severe Anaphylaxis Verified 07/30/18 08:06 Penicillins Allergy Severe Respiratory Verified 07/29/18 23:05 bee sting Allergy Anaphylaxis Uncoded 07/29/18 23:05 - Social History Does the pt smoke?: Yes Smoking Status: Current every day smoker Does the pt drink ETOH?: No Does the pt have substance abuse?: No - Immunizations Immunizations are current?: No Immunizations: TDAP >10years/unknown - POLST Patient has POLST: No POLST Status: Full Code PD ED PE NORMAL - Vitals Vital signs reviewed: Yes - General General: Alert and oriented X 3 - HEENT HEENT: Atraumatic - Cardiac Cardiac: RRR - Respiratory Respiratory: No respiratory distress - Extremities Extremities: Other (Minor abrasion to the right forearm with underlying bruising and swelling. No pain with palpation down the Radius or ulna. Is a 2+ radial pulse. Full range of motion about the wrist. He is able to make a fist abduct the pinky and thumb and sensation is intact to light touch in all digits.) - Neuro Neuro: Alert and oriented X 3, No motor deficit, No sensory deficit Results - Vitals Vitals: Vital Signs - 24 hr 07/17/19 11:46 Temperature 36.5 C Heart Rate 71 Respiratory 16 Rate Blood Pressure 118/81 H O2 Saturation 97 Oxygen O2 Source Room air PD MEDICAL DECISION MAKING - ED course Complexity details: d/w patient ED course: No evidence of any significant underlying injury. He does have some bruising and hematoma. Counseled on the natural progression of this. Recommended not to use ibuprofen due to Eliquis but only Tylenol and ice to help with the pain. Departure - Departure Disposition: 01 Home, Self Care Clinical Impression: Hematoma and contusion Condition: Good Instructions: ED Hematoma Follow-Up: Daniel Negron PA-C [Primary Care Provider] - Comments: Ice for comfort. Tylenol for pain. Follow-up with your doctor if needed for continued pain.
== END 2019-07-17 12:26 | disposition home or self-care (01) ==
LOC: ED 11:30
DX: S50.811A Abrasion of right forearm, initial encounter (principal); S50.11XA Contusion of right forearm, initial encounter; W23.0XXA Caught, crushed, jammed, or pinched between moving objects, initial encounter; Y93.89 Activity, other specified; Y92.511 Restaurant or cafe as the place of occurrence of the external cause; Y99.0 Civilian activity done for income or pay; I48.91 Unspecified atrial fibrillation; Z79.01 Long term (current) use of anticoagulants; Z79.82 Long term (current) use of aspirin; F17.200 Nicotine dependence, unspecified, uncomplicated
CPT/HCPCS: 1040M; 99281; 99282

== ENCOUNTER 2019-11-15 14:13 | Outpatient (CLI) | payer MEDICAID ==
[2019-11-15 18:31] LABS: CALCIUM 8.9 mg/dL (8.5-10.3); CREATININE 0.9 mg/dL (0.6-1.2)
== END 2019-11-15 23:59 | disposition home or self-care (01) ==
LOC: LAB.N 14:13
PROVIDERS: ATTEND Registered Nurse
DX: I42.8 Other cardiomyopathies (principal); I51.9 Heart disease, unspecified
CPT/HCPCS: 36415; 80048

== ENCOUNTER 2020-07-17 22:34 | Emergency (ER) | payer MEDICAID ==
[2020-07-17 22:39] VITALS: BP 141/98
[2020-07-17] MEDS ORDERED: IBUPROFEN 600 MG TABLET PO STA (22:48)
[2020-07-17] MEDS ORDERED: HYDROcod/ACETAM 5/325 MG TABLET PO STA (22:48)
[2020-07-17] MEDS ORDERED: HYDROcod/ACET 5/325 Prepack 4 PO STA (22:48)
--- NOTE | 2020-07-17 22:51 | ED Physician Documentation ---
History of Present Illness - Stated complaint Stated Complaint: TOOTH PX - Chief complaint Chief Complaint: Heent - History obtained from History obtained from: Patient - Additonal information Additional information: Patient comes emergency department complaining of pain in his right maxillary wisdom tooth. He states that it has been erupted for some time and that he has developed extensive decay, followed by breakage of the tooth. He states he has an appointment in 1 week from today to get the tooth extracted, but that it began to hurt quite badly tonight. Patient states that he has not had any fevers or facial swelling. No drainage from the tooth area. No other complaints at this time. Review of Systems Ten Systems: 10 systems reviewed and negative Constitutional: reports: Reviewed and negative Eyes: reports: Reviewed and negative Ears: reports: Reviewed and negative Nose: reports: Reviewed and negative Throat: reports: Dental pain / toothache. denies: Oral lesions / sores, Sore throat Cardiac: reports: Reviewed and negative Respiratory: reports: Reviewed and negative GI: reports: Reviewed and negative : reports: Reviewed and negative Skin: reports: Reviewed and negative Musculoskeletal: reports: Reviewed and negative Neurologic: reports: Reviewed and negative Psychiatric: reports: Reviewed and negative Endocrine: reports: Reviewed and negative Immunocompromised: reports: Reviewed and negative PD PAST MEDICAL HISTORY - Past Medical History Cardiovascular: PR, Atrial fibrillation Respiratory: Asthma : None HEENT: None Derm: None - Past Surgical History Past Surgical History: No - Present Medications Home Medications: Ambulatory Orders Medication Instructions Recorded Confirmed Albuterol Sulfate [Proair Hfa 2 puffs INH BID PRN #1 hfa.aer.ad 07/31/18 Inhaler] Apixaban [Eliquis] 5 mg PO BID #60 tablet 07/31/18 Aspirin [Aspirin EC] 81 mg PO DAILY #30 tablet. 07/31/18 Atorvastatin [Lipitor] 10 mg PO QPM #30 tablet 07/31/18 LORazepam [Ativan] 1 mg PO Q12H PRN #4 tablet 07/31/18 Nicotine 14 mg Patch [Nicoderm] 1 patch TOP DAILY #14 patch 07/31/18 Nitroglycerin [Nitrostat] 0.4 mg SL Q5MIN PRN #100 tablet 07/31/18 Spironolactone 12.5 mg PO MOWEFR #15 tablet 07/31/18 carvediloL [Coreg] 12.5 mg PO BID #60 tablet 07/31/18 lisinopriL [Zestril] 2.5 mg PO QPM #15 tablet 07/31/18 Clindamycin HCl [Clindamycin 300MG 300 mg PO Q6H 7 Days #28 capsule 07/17/20 CAP] HYDROcod/ACETAM 5/325 [[place] 5/325] 1 - 2 ea PO Q6H PRN #15 tablet 07/17/20 - Allergies Allergies/Adverse Reactions: Allergies Allergy/AdvReac Type Severity Reaction Status Date / Time bee venom protein (honey bee) Allergy Severe Anaphylaxis Verified 07/17/20 22:39 Penicillins Allergy Severe Respiratory Verified 07/17/20 22:39 bee sting Allergy Anaphylaxis Uncoded 07/17/20 22:39 - Social History Does the pt smoke?: Yes Smoking Status: Current every day smoker Does the pt drink ETOH?: No Does the pt have substance abuse?: No - Immunizations Immunizations are current?: No Immunizations: TDAP >10years/unknown - POLST Patient has POLST: No POLST Status: Full Code PD ED PE NORMAL - General General: Alert and oriented X 3, No acute distress, Well developed/nourished, Other - HEENT HEENT: Atraumatic, PERRL, EOMI, Moist mucous membranes, Pharynx benign, Other (Patient has poor dentition with multiple missing teeth. He has a severely decayed right maxillary molar which appears to be molar #3. There is nonacute avulsion of part of the tooth with pulp exposed.) Results - Vitals Vitals: Vital Signs - 24 hr 07/17/20 22:35 Temperature 36.3 C L Heart Rate 90 Respiratory 18 Rate Blood Pressure 141/98 H O2 Saturation 99 Oxygen O2 Source Room air PD MEDICAL DECISION MAKING - ED course Complexity details: considered differential, d/w patient ED course: I discussed with the patient that at this point in time I do not see any evidence of infection. However, I am going to give him a prescription for antibiotics in case he begins to develop swelling, as infection will delay his ability to get this tooth extracted. I have given the patient a dose of Vicodin here in the emergency department, as well as a prepack for the same. The patient is discharged home with prescriptions for analgesia and antibiotics. We have discussed the usual indications for return. Departure - Departure Disposition: , Self Care Clinical Impression: Pain due to dental caries Condition: Stable Instructions: ED Tooth Pain Prescriptions: Clindamycin HCl [Clindamycin 300MG CAP] 300 mg PO Q6H 7 Days #28 capsule HYDROcod/ACETAM 5/325 [[place] 5/325] 1 - 2 ea PO Q6H PRN #15 tablet PRN Reason: Pain
== END 2020-07-17 22:59 | disposition home or self-care (01) ==
LOC: ED 22:34
DX: K02.9 Dental caries, unspecified (principal); K08.89 Other specified disorders of teeth and supporting structures; I48.91 Unspecified atrial fibrillation; Z79.01 Long term (current) use of anticoagulants; F17.200 Nicotine dependence, unspecified, uncomplicated
CPT/HCPCS: 99282; 99283; A9270

== ENCOUNTER 2020-07-26 18:29 | Emergency (ER) | payer MEDICAID ==
--- NOTE | 2020-07-26 20:00 | ED Physician Documentation ---
History of Present Illness - Stated complaint Stated Complaint: MOUTH WOUND - Chief complaint Chief Complaint: Heent - History of Present Illness Timing: Prior to arrival - Additonal information Additional information: 39-year-old male presents the emergency department for evaluation of bleeding at the site of tooth extraction. This morning he had tooth #1 extracted at [facility] in [place]. Upon discharge from the dental clinic he continued to saturate gauze pads. He estimates as many as 10. He denies excessive pain. He did call the dental clinic but there was no dentist availability for him to be seen later in the day therefore he comes to the emergency department. Review of Systems Constitutional: reports: Reviewed and negative Eyes: reports: Reviewed and negative Ears: reports: Reviewed and negative Nose: reports: Reviewed and negative Throat: reports: Dental pain / toothache (bleeding at extraction site) Cardiac: reports: Reviewed and negative Respiratory: reports: Reviewed and negative GI: reports: Reviewed and negative : reports: Reviewed and negative Skin: reports: Reviewed and negative Musculoskeletal: reports: Reviewed and negative Neurologic: reports: Reviewed and negative PD PAST MEDICAL HISTORY - Past Medical History Past Medical History: Yes Cardiovascular: DC, Atrial fibrillation Respiratory: Asthma : None HEENT: None Derm: None - Past Surgical History Past Surgical History: No - Present Medications Home Medications: Ambulatory Orders Medication Instructions Recorded Confirmed Albuterol Sulfate [Proair Hfa 2 puffs INH BID PRN #1 hfa.aer.ad 07/31/18 Inhaler] Apixaban [Eliquis] 5 mg PO BID #60 tablet 07/31/18 Aspirin [Aspirin EC] 81 mg PO DAILY #30 tablet. 07/31/18 Atorvastatin [Lipitor] 10 mg PO QPM #30 tablet 07/31/18 LORazepam [Ativan] 1 mg PO Q12H PRN #4 tablet 07/31/18 Nicotine 14 mg Patch [Nicoderm] 1 patch TOP DAILY #14 patch 07/31/18 Nitroglycerin [Nitrostat] 0.4 mg SL Q5MIN PRN #100 tablet 07/31/18 Spironolactone 12.5 mg PO MOWEFR #15 tablet 07/31/18 carvediloL [Coreg] 12.5 mg PO BID #60 tablet 07/31/18 lisinopriL [Zestril] 2.5 mg PO QPM #15 tablet 07/31/18 Clindamycin HCl [Clindamycin 300MG 300 mg PO Q6H 7 Days #28 capsule 07/17/20 CAP] HYDROcod/ACETAM 5/325 [[place] 5/325] 1 - 2 ea PO Q6H PRN #15 tablet 07/17/20 - Allergies Allergies/Adverse Reactions: Allergies Allergy/AdvReac Type Severity Reaction Status Date / Time bee venom protein (honey bee) Allergy Severe Anaphylaxis Verified 07/26/20 18:40 Penicillins Allergy Severe Respiratory Verified 07/26/20 18:40 bee sting Allergy Anaphylaxis Uncoded 07/26/20 18:40 - Social History Does the pt smoke?: Yes Smoking Status: Current every day smoker Does the pt drink ETOH?: No Does the pt have substance abuse?: No - Immunizations Immunizations are current?: No Immunizations: TDAP >10years/unknown - POLST Patient has POLST: No POLST Status: Full Code PD ED PE EXPANDED - General General: Alert, No acute distress - HEENT HEENT: No: Dry socket (Extraction site of tooth #1 shows firm clot. No active bleeding at this time. There is no gumline or soft/hard palate swelling or asymmetry. Patient has no trismus. Uvula is midline.) Results - Vitals Vitals: Vital Signs - 24 hr 07/26/20 07/26/20 18:37 19:21 Temperature 36.6 C 36.6 C Heart Rate 78 78 Respiratory 18 18 Rate Blood Pressure 136/91 H 135/88 H O2 Saturation 96 96 Oxygen O2 Source Room air PD MEDICAL DECISION MAKING - ED course Complexity details: d/w patient ED course: 39-year-old male presents the emergency department for evaluation of bleeding at the extraction site of tooth #1. However the time of my exam there is firm clot within the socket and no further active bleeding noted. I advised patient to continue to hold gauze over the site. He may rinse with warm salt water 2-3 times a day. He is to call the dental office in the a.m. to discuss the ED visit. Departure - Departure Disposition: 01 Home, Self Care Clinical Impression: H/O tooth extraction Qualifiers: Tooth loss class: unspecified tooth loss Qualified Code(s): K08.409 - Partial loss of teeth, unspecified cause, unspecified class Condition: Stable Record reviewed to determine appropriate education?: Yes Comments: Ryan the socket where the tooth was removed shows a firm clot at this time. There is no further active bleeding. I do recommend that you continue to keep gauze gently in place over the next 12 hours. If you begin to have heavy bleeding you may return to the emergency department. Please call the dental clinic in the a.m. to discuss this ED visit.
[2020-07-26 20:04] VITALS: BP 136/86
== END 2020-07-26 20:03 | disposition home or self-care (01) ==
LOC: ED 18:29
DX: K08.409 Partial loss of teeth, unspecified cause, unspecified class (principal); F17.200 Nicotine dependence, unspecified, uncomplicated
CPT/HCPCS: 99281; 99282

== ENCOUNTER 2020-10-24 16:12 | Outpatient (CLI) | payer MEDICAID ==
[2020-10-24 17:04] VITALS: BP 117/82
--- NOTE | 2020-10-24 17:04 | SLEEP CARE CONSULTATION ---
Information from patient questionnaire entered by Kadi Alvarez. I have reviewed and concur with the information entered by Kadi Alvarez. This document represents the service I personally performed and the decisions made by me, Jihan Figueroa ARNP. History of Present Illness Service Date and Time: 10/24/2020 1612 Reason for Visit: New patient Chief Complaint: reports: Snoring, Fatigue (during the day since he stopped working 1 year ago), Other (ENT referral). denies: Unrefreshed sleep, Excessive daytime sleepiness, Observed pauses in breathing, Frequent awakenings at night Date of Onset: All my life Usual bedtime: 9 PM Time it takes to fall asleep: Depends on breathing Snores at night: Yes Observed to quit breathing while asleep: No Sleeps alone due to snoring: No Number of times waking at night: 2 -3 Reasons for waking at night: reports: Bathroom, Other (Nasal congestion). denies: Choking, Snoring, Gasping for air Toss, Turn, or Twitch while sleeping: Yes Recalls having dreams: Yes Usually gets out of bed at: 6 AM Feels refreshed in the morning: Yes Morning headache: No Sleepy or fatigued during the day: Yes Ever fallen asleep while driving: No Takes day naps: Yes (2-3 days a week, 30 minutes to 1.5 hours) Dreams during day naps: Yes Prior sleep studies: No Additional HPI information: I had the pleasure of seeing GARRETT GUDINO today regarding the possibility of him having a sleep disorder. His current complaints are snoring, daytime fatigue, nasal congestion from left-sided septal deviation and atrial fibrillation. He is seeing an ENT who sent him for referral before he has sinus surgery. His sleeping well depends on whether his sinuses are clear and open. He sleeps upright because it helps keep phlegm from draining into his lungs. He has a history of atrial fibrillation, CHF, hypertrophic cardiomyopathy and hypertension. 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 Patient is Single and lives in [place]. Have you smoked in the past 12 months: Yes Cigarettes per day (20/pack): 20 Years of smokin Smoking Pack Years: 25.0 Alcohol use: Yes Alcohol amount and frequency: 2 beers every other day Caffeine use: Yes Caffeine amount and frequency: Coffee 2 cups daily Family History Family history of sleep disordered breathing: No Allergies and Home Medications Drug allergies reviewed: Yes (penicillins) Home medication list reviewed: Yes Allergy and home medication list: Atorvastatin Carvedilol Eliquis Spirolactone Review of Systems Weight gain over past 5 years: 10 Cardiovascular: reports: high blood pressure, palpitations, chest pain, irregular heart rate or pulse, have to sleep sitting up Respiratory: reports: shortness of breath, wheeze, sputum production, chronic cough Neurological: reports: headaches Ear/Nose/Throat: reports: nasal congestion, sinus problems, nose bleeds, dry mouth/throat Immunologic: reports: sneezing (runny nose), rash, itching, other (Detergents) Physical Exam Blood Pressure: 117/82 Cuff size: wrist Heart Rate: 89 O2 Saturation: 96 Height: 6 ft Weight: 260 lb Body Mass Index: 35.2 BMI Classification: Obese Neck circumference: 17 (inches) Nostrils: partially obstructed Turbinates: swollen Mouth and throat: narrow oropharynx Soft palate: long Uvula visualization: 25% Mallampati Class III Tongue: normal in size Tonsils: 2+ Chin and jaw: normal size and position Neck: normal w/o lymphadenopathy or thyromegaly Heart: irregular rhythm Lungs: clear bilaterally Impression and Plan 1. Suspected Obstructive Sleep Apnea-Hypopnea Syndrome, as suggested by a history of loud and irregular snoring, and fatigue during the day. He has a history of atrial fibrillation, hypertension and congestive heart failure. Narrow oropharynx and obesity are common predisposing factors for obstructive sleep apnea-hypopnea syndrome. I recommend proceeding to polysomnography to confirm the diagnosis and to assess severity. If the patient has significant sl eep disordered breathing, a manual CPAP titration study will also be performed to find the optimal treatment pressure. I informed the patient of what the sleep studies involve and after some discussion, obtained agreement to proceed. The pathophysiology of obstructive sleep apnea-hypopnea syndrome was discussed with the patient and health risks of cardiovascular and cerebrovascular disease if not treated. 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 Patient agreed to plan. * Schedule polysomnography +- manual CPAP titration study and return in 1-2 weeks after the study to discuss result and initiate therapy. * Avoid long distance driving or driving when feeling sleepy. * Avoid alcohol, sedative and muscle relaxant around bedtime. * Attempt to lose weight. * Review instructions provided by trained office staff on how to prepare for the sleep study. * Return for follow-up after sleep study completed. Counseling Topics: Weight loss health impact Visit Type: In Office Time Spent with Patient (minutes): 32 Provider Statement: I spent 100% of the Face to Face Visit with the patient with greater than 50% spent counseling the patient and coordination of care.
== END 2020-10-24 16:13 | disposition home or self-care (01) ==
LOC: SC 16:12
PROVIDERS: ATTEND Nurse Practitioner Family
DX: R53.83 Other fatigue (principal); R06.83 Snoring; I48.91 Unspecified atrial fibrillation; I11.0 Hypertensive heart disease with heart failure; I50.9 Heart failure, unspecified; F17.200 Nicotine dependence, unspecified, uncomplicated; E66.9 Obesity, unspecified; Z68.35 Body mass index [BMI] 35.0-35.9, adult
CPT/HCPCS: 99203; 99212

== ENCOUNTER 2022-05-25 18:28 | Emergency (ER) | payer OTHER, MEDICAID ==
[2022-05-25 18:45] VITALS: BP 172/92
[2022-05-25] MEDS ORDERED: BACITRACIN ZINC OINT 1 PACKET TOP STA (19:22)
[2022-05-25] MEDS ORDERED: BACITRACIN ZINC OINT 1 PACKET TOP ONE (19:32)
--- NOTE | 2022-05-25 19:39 | ED Physician Documentation ---
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 He works as a [employer]. Tetanus is up-to-date. He is right-hand dominant. He is anticoagulated on Eliquis secondary to history of A. fib. Bleeding is controlled with pressure Review of Systems Constitutional: reports: Reviewed and negative Throat: reports: Reviewed and negative Cardiac: reports: Reviewed and negative Respiratory: reports: Reviewed and negative Skin: reports: Laceration (s) PD PAST MEDICAL HISTORY - Past Medical History Past Medical History: Yes Cardiovascular: [place], Atrial fibrillation Respiratory: Asthma : None HEENT: None Derm: None - Past Surgical History Past Surgical History: Yes General: Other - Present Medications Home Medications: Ambulatory Orders Medication Instructions Recorded Confirmed Albuterol Sulfate [Proair Hfa 2 puffs INH BID PRN #1 hfa.aer.ad 07/31/18 05/25/22 Inhaler] Apixaban [Eliquis] 5 mg PO BID #60 tablet 07/31/18 05/25/22 Atorvastatin [Lipitor] 10 mg PO QPM #30 tablet 07/31/18 05/25/22 Nicotine 14 mg Patch [Nicoderm] 1 patch TOP DAILY #14 patch 07/31/18 Nitroglycerin [Nitrostat] 0.4 mg SL Q5MIN PRN #100 tablet 07/31/18 05/25/22 Spironolactone 12.5 mg PO MOWEFR #15 tablet 07/31/18 05/25/22 carvediloL [Coreg] 12.5 mg PO BID #60 tablet 07/31/18 05/25/22 lisinopriL [Zestril] 2.5 mg PO QPM #15 tablet 07/31/18 05/25/22 - Allergies Allergies/Adverse Reactions: Allergies Allergy/AdvReac Type Severity Reaction Status Date / Time bee venom protein (honey bee) Allergy Severe Anaphylaxis Verified 05/25/22 18:45 Penicillins Allergy Severe Respiratory Verified 05/25/22 18:45 bee sting Allergy Anaphylaxis Uncoded 05/25/22 18:45 - Social History Does the pt smoke?: Yes Smoking Status: Current every day smoker Does the pt drink ETOH?: Yes ETOH Use: Beer Does the pt have substance abuse?: No - Immunizations Immunizations are current?: Yes Immunizations: TDAP >10years/unknown - POLST Patient has POLST: No POLST Status: Full Code PD ED PE EXPANDED - Extremities Extremities: Left finger(s) (1 cm laceration distal tip left index finger. Bleeding controlled with pressure. Normal sensation and movement of finger at DIP joint.) Results - Vitals Vitals: Vital Signs - 24 hr 05/25/22 18:43 Temperature 36.3 C L Heart Rate 87 Respiratory 16 Rate Blood Pressure 172/92 H O2 Saturation 98 Oxygen O2 Source Room air Procedures - Laceration (location) Left index finger Length in cm: 1 Wound type: Linear, Into subcut fat Anesthesia: Lidocaine 1% Wound preparation: Irrigated copiously NS Skin layer closure: Nylon, Interrupted, Sutures - enter # (2) Other: Patient tolerated well, No complications, Neurovascular intact, Tetanus UTD PD MEDICAL DECISION MAKING - ED course Complexity details: considered differential, d/w patient ED course: 41-year-old male presents emergency department for evaluation of a left index finger laceration sustained when cutting butter at work with a knife. He is anticoagulated on Eliquis the bleeding is controlled with simple pressure. Wound was closed with 2 sutures. Tetanus is up-to-date. Routine wound care and emergent return precautions discussed. This is a labor and industries claim. Claim number [id number] completed Departure - Departure Disposition: 01 Home, Self Care Clinical Impression: Laceration of left index finger Qualifiers: Encounter type: initial encounter Damage to nail status: without damage Foreign body presence: without foreign body Qualified Code(s): S61.211A - Laceration without foreign body of left index finger without damage to nail, initial encounter Condition: Stable Record reviewed to determine appropriate education?: Yes Instructions: ED Laceration Hand Comments: Your suture(s) should be removed in 7 to 10 days. In 24 hours you may remove the dressing wash gently with warm soap and water, apply any antibiotic ointment and a simple bandage. Your tetanus is up-to-date. Please attempt to keep your wound clean and dry. Do not submerge it in dirty dishwater or bath water. Return to the emergency department if you have any concerns of infection such as redness, fevers milky drainage increased pain. You can return to work at your regular scheduled shift. Please ensure that you keep your hand clean and dry at work. Wear gloves at all times until the wound is healed
== END 2022-05-25 19:40 | disposition home or self-care (01) ==
LOC: ED 18:28
DX: S61.211A Laceration without foreign body of left index finger without damage to nail, initial encounter (principal); W26.0XXA Contact with knife, initial encounter; Y93.G1 Activity, food preparation and clean up; Y92.511 Restaurant or cafe as the place of occurrence of the external cause; Y99.0 Civilian activity done for income or pay; F17.200 Nicotine dependence, unspecified, uncomplicated
CPT/HCPCS: 1040M; 12001; 99282; A9270

== ENCOUNTER 2022-10-28 10:34 | Outpatient (CLI) | payer MEDICAID ==
[2022-10-28 12:10] LABS: BASOPHILS # (AUTO) 0.1 10^3/uL (0.0-0.1); BASOPHILS % (AUTO) 0.9 %; EOSINOPHILS # (AUTO) 0.7 10^3/uL (0.0-0.7); EOSINOPHILS % (AUTO) 7.2 %; HCT - HEMATOCRIT 46.3 % (42.0-52.0); HGB - HEMOGLOBIN 15.2 g/dL (14.0-18.0); LYMPHOCYTES # (AUTO) 2.6 10^3/uL (1.5-3.5); LYMPHOCYTES % (AUTO) 27.2 %; MEAN CORPUSCULAR HEMOGLOBIN 30.5 pg (27.0-31.0); MEAN CORPUSCULAR HGB CONC 32.8 g/dL (32.0-36.0); MEAN PLATELET VOLUME 10.2 fL (7.4-11.4); MONOCYTES # (AUTO) 1.1 10^3/uL (0.0-1.0); MONOCYTES % (AUTO) 11.4 %; NEUTROPHILS # (AUTO) 5.1 10^3/uL (1.5-6.6); NEUTROPHILS % (AUTO) 53.1 %; PLT - PLATELET COUNT 253 10^3/uL (130-450); RED BLOOD COUNT 4.98 10^6/uL (4.70-6.10); RED CELL DISTRIBUTION WIDTH 11.9 % (12.0-15.0); WHITE BLOOD COUNT 9.6 x10^3/uL (4.8-10.8)
[2022-10-28 12:39] LABS: BUN - BLOOD UREA NITROGEN 11 mg/dL (6-20); CALCIUM 9.5 mg/dL (8.5-10.3); CARBON DIOXIDE - CO2 29 mmol/L (21-32); CHLORIDE 101 mmol/L (101-111); CHOL/HDL RATIO 2.6 (<5.0); CHOLESTEROL 111 mg/dL; CREATININE 0.9 mg/dL (0.6-1.2); GFR - MDRD 92 (>89); GLUCOSE 126 mg/dL (70-100); HDL CHOLESTEROL 42 mg/dL; LDL CHOLESTEROL,CALCULATED 41 mg/dL; POTASSIUM 4.5 mmol/L (3.5-5.0); SODIUM 139 mmol/L (135-145); TRIGLYCERIDES 139 mg/dL; VLDL CHOLESTEROL 28 mg/dL
== END 2022-10-28 10:35 | disposition home or self-care (01) ==
LOC: LAB.N 10:34
PROVIDERS: ATTEND Internal Medicine Cardiovascular Disease
DX: I51.9 Heart disease, unspecified (principal); I48.20 Chronic atrial fibrillation, unspecified
CPT/HCPCS: 36415; 80048; 80061; 83721; 85025

== ENCOUNTER 2023-09-18 06:20 | Emergency (ER) | payer MEDICAID ==
[2023-09-18] MEDS ORDERED: diltiaZEM INJ 5 MG/ML VIAL IVP STA (06:43)
[2023-09-18 06:47] LABS: BASOPHILS # (AUTO) 0.1 10^3/uL (0.0-0.1); BASOPHILS % (AUTO) 0.6 %; EOSINOPHILS # (AUTO) 0.7 10^3/uL (0.0-0.7); EOSINOPHILS % (AUTO) 5.8 %; HCT - HEMATOCRIT 46.6 % (42.0-52.0); HGB - HEMOGLOBIN 15.6 g/dL (14.0-18.0); LYMPHOCYTES # (AUTO) 2.3 10^3/uL (1.5-3.5); LYMPHOCYTES % (AUTO) 20.7 %; MEAN CORPUSCULAR HEMOGLOBIN 30.7 pg (27.0-31.0); MEAN CORPUSCULAR HGB CONC 33.5 g/dL (32.0-36.0); MEAN CORPUSCULAR VOLUME 91.7 fL (80.0-94.0); MEAN PLATELET VOLUME 10.2 fL (7.4-11.4); MONOCYTES # (AUTO) 1.3 10^3/uL (0.0-1.0); MONOCYTES % (AUTO) 11.5 %; NEUTROPHILS # (AUTO) 6.8 10^3/uL (1.5-6.6); PLT - PLATELET COUNT 260 10^3/uL (130-450); RED BLOOD COUNT 5.08 10^6/uL (4.70-6.10); RED CELL DISTRIBUTION WIDTH 11.8 % (12.0-15.0); WHITE BLOOD COUNT 11.2 x10^3/uL (4.8-10.8)
[2023-09-18 07:13] LABS: ALBUMIN/GLOBULIN RATIO 1.7 (1.0-2.2); BILIRUBIN,TOTAL 0.4 mg/dL (0.2-1.0); CALCIUM 8.8 mg/dL (8.5-10.3); POTASSIUM 4.1 mmol/L (3.5-4.5); TOTAL PROTEIN 6.4 g/dL (6.4-8.9)
--- NOTE | 2023-09-18 07:19 | ED Physician Documentation ---
PD HPI CHEST PAIN - Stated complaint Stated Complaint: CHEST PX - Chief complaint Chief Complaint: Cardiac - History obtained from History obtained from: Patient - History of Present Illness Timing - onset: How many hours ago (2-3), Today Timing - onset during: Rest Timing - duration: Hours Timing - details: Abrupt onset, Still present Quality: Sharp, Pain Location: Left chest Radiation: No: Jaw, Neck, Back Improved by: Rest Worsened by: Inspiration, Movement. No: Exertion, Palpation Similar symptoms before: Has not had sx before Recently seen: Not recently seen Review of Systems Constitutional: denies: Fever, Chills Nose: denies: Rhinorrhea / runny nose, Congestion Throat: denies: Sore throat Cardiac: denies: Pedal edema, Calf pain Respiratory: denies: Cough GI: denies: Abdominal Pain, Vomiting, Diarrhea, Bloody / black stool Musculoskeletal: denies: Extremity swelling Neurologic: denies: Generalized weakness, Near syncope PD PAST MEDICAL HISTORY - Past Medical History Cardiovascular: [place], Atrial fibrillation, Other (he had CP and new onset atrial fib 2018, in [facility] with ECHO 30% EF but no wall notion abn. Myocardial perfusion stress showed EF235%, and apical fixed defect. He states went on to get heart cath without any stenosers nor stents needed. Has had cardioversion x 3 but resumes atrial fib chronic. ) Respiratory: Asthma : None HEENT: None Derm: None - Past Surgical History Past Surgical History: Yes General: Other - Present Medications Home Medications: Ambulatory Orders Medication Instructions Recorded Confirmed Albuterol Sulfate [Proair Hfa 2 puffs INH BID PRN #1 hfa.aer.ad 07/31/18 05/25/22 Inhaler] Apixaban [Eliquis] 5 mg PO BID #60 tablet 07/31/18 05/25/22 Atorvastatin [Lipitor] 10 mg PO QPM #30 tablet 07/31/18 05/25/22 Nicotine 14 mg Patch [Nicoderm] 1 patch TOP DAILY #14 patch 07/31/18 Nitroglycerin [Nitrostat] 0.4 mg SL Q5MIN PRN #100 tablet 07/31/18 05/25/22 Spironolactone 12.5 mg PO MOWEFR #15 tablet 07/31/18 05/25/22 carvediloL [Coreg] 12.5 mg PO BID #60 tablet 07/31/18 05/25/22 lisinopriL [Zestril] 2.5 mg PO QPM #15 tablet 07/31/18 05/25/22 - Allergies Allergies/Adverse Reactions: Allergies Allergy/AdvReac Type Severity Reaction Status Date / Time bee venom protein (honey bee) Allergy Severe Anaphylaxis Verified 09/18/23 06:33 Penicillins Allergy Severe Respiratory Verified 09/18/23 06:33 - Social History Does the pt smoke?: Yes Smoking Status: Current every day smoker Does the pt drink ETOH?: Yes Does the pt have substance abuse?: No - Immunizations Immunizations are current?: Yes Immunizations: TDAP >10years/unknown - POLST Patient has POLST: No POLST Status: Full Code PD ED PE NORMAL - Vitals Vital signs reviewed: Yes - General General: Alert and oriented X 3, Well developed/nourished - HEENT HEENT: Pharynx benign - Neck Neck: Supple, no meningeal sign, No adenopathy - Cardiac Cardiac: No murmur. No: RRR (irregular and fast rate) - Respiratory Respiratory: No respiratory distress, Clear bilaterally - Abdomen Abdomen: Soft, Non tender - Derm Derm: Normal color, Warm and dry - Extremities Extremities: Normal ROM s pain, No edema, No calf tenderness / cord - Neuro Neuro: Alert and oriented X 3, No motor deficit, Normal speech Eye Opening: Spontaneous Motor: Obeys Commands Verbal: Oriented GCS Score: 15 Results - Vitals Vitals: Oxygen O2 Source Room air - EKG (time done) 06:29 EKG releavant findings:: EKG personally interpreted by author of this note. Relevant findings are: Rate: Rate (enter#) (137) Rhythm: Atrial fibrillation [place]: Normal QRS: Normal Ischemia: Normal ST segments. No: ST elevation c/w ischemia, ST depression Compare to prior EKG: Old EKG unavailable (last telemetry strips 2018 showed atrial fib and ECHO 2018 was atrial fib with EF 30%. Myocardial perfusion/stress test was abn with some apical nonreversible defect.) - Labs Labs: Laboratory Tests 09/18/23 09/18/23 09/18/23 06:42 06:55 06:55 WBC 11.2 H RBC 5.08 Hgb 15.6 Hct 46.6 MCV 91.7 MCH 30.7 MCHC 33.5 RDW 11.8 L Plt Count 260 MPV 10.2 Neut # (Auto) 6.8 H Lymph # (Auto) 2.3 Hubbard # (Auto) 1.3 H Eos # (Auto) 0.7 Baso # (Auto) 0.1 Absolute Nucleated RBC 0.00 Nucleated RBC % 0.0 Sodium 136 Potassium 4.1 Chloride 104 Carbon Dioxide 26 Anion Gap 6.0 BUN 14 Creatinine 1.0 Estimated GFR (MDRD) 81 L Glucose 130 H Calcium 8.8 Magnesium 1.9 Total Bilirubin 0.4 AST 69 H ALT 86 H Alkaline Phosphatase 74 Troponin I High Sens 5.3 Total Protein 6.4 Albumin 4.0 Globulin 2.4 Albumin/Globulin Ratio 1.7 Lipase 36 09/18/23 08:59 WBC RBC Hgb Hct MCV MCH MCHC RDW Plt Count MPV Neut # (Auto) Lymph # (Auto) Hubbard # (Auto) Eos # (Auto) Baso # (Auto) Absolute Nucleated RBC Nucleated RBC % Sodium Potassium Chloride Carbon Dioxide Anion Gap BUN Creatinine Estimated GFR (MDRD) Glucose Calcium Magnesium Total Bilirubin AST ALT Alkaline Phosphatase Troponin I High Sens 4.7 Total Protein Albumin Globulin Albumin/Globulin Ratio Lipase - Rads (name of study) chest xray Relevant Findings:: Prelim report reviewed (no acute abnormality), EMP independent interpretation of test PD Medical Decision Making - ED course Complexity details: reviewed results (ECG with fast atrial fib. reports chronic atril fib, so not new paroxysm. CXR clear without lung abnromal process. Presume pleurisy but no recent inuury nor cough nor URI. Troponin x 2 are normal. Can treat with NSAIDs and pain meds. Presume imrovement over few days. ), considered differential (onset of pleuritic chest pain during sleep. Continues but not as swvere. Noted heart rate feeling fast. Hisotry of chronic atrial fib. Low risk PERC score and is on ELiquis. Not hypoxic. No recent URI nor cough. ), d/w patient Departure - Departure Disposition: 01 Home, Self Care Clinical Impression: Atrial fibrillation with rapid ventricular response, Pleuritic chest pain Condition: Stable Record reviewed to determine appropriate education?: Yes Instructions: ED Chest Pain Atypical Unkn Cause Comments: Your heart rhythm was a fast atrial fibrillation as you first arrived. It did get slow down with some extra medicine and has been in a controlled rate. I would continue with your current usual medicines. Stay well-hydrated. Rest today and tomorrow. Your blood tests including troponin and BNP were normal showing no signs of heart muscle injury/heart attack or signs of heart failure. Your chest x-ray was clear without any signs of fluid in the lungs, collapsed lung, pneumonia, enlarged heart. You did not get improvement from antacid. It sounds less likely esophageal/heartburn. At this point I would presume some musculoskeletal pain or perhaps some inflammation around the lung (pleurisy). Use Tylenol 500 to 650 mg 4 times daily for the pains. You could use occasional doses of ibuprofen or naproxen for a few days, but not regularly since you are on a blood thinner as well. It is unclear the cause of your symptoms at this point. See how you feel through the day today and tomorrow. If you develop other symptoms such as aches, fever, cough then this could be early part of a viral type illness. Otherwise could be musculoskeletal. If this decreases and goes away in the next day or 2 then no further workup needed. 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 A echocardiogram in the spring and a angiogram in the last 3 years is pretty reassuring. Forms: PCP List, Activity restrictions Discharge Date/Time: 09/18/23 10:33
[2023-09-18 07:20] LABS: TROPONIN I HIGH SENSITIVITY 5.3 ng/L (2.3-19.7)
[2023-09-18] MEDS ORDERED: KETOROLAC 15 MG/ML VIAL IVP STA (07:33)
[2023-09-18] MEDS ORDERED: NITROGLYCERIN SL 0.4 MG TABLET SL STA (07:33)
[2023-09-18] MEDS ORDERED: MAG HYDROX/AL HYDROX/SIMETH 30 ML UDC PO STA (07:33)
--- NOTE | 2023-09-18 07:57 | XRAY Report ---
PROCEDURE: Chest 1V INDICATIONS: chest pain TECHNIQUE: One view of the chest was acquired. COMPARISON: None. FINDINGS: Surgical changes and devices: None. Lungs and pleura: No pleural effusions or pneumothorax. Lungs are clear. Mediastinum: Mediastinal contours appear normal. Heart size is normal. Bones and chest wall: No suspicious bony lesions. Overlying soft tissues appear unremarkable. IMPRESSION: No acute cardiopulmonary process. Reviewed by: Randal Ren MD on 09/18/2023 7:56 AM [facility] Approved by: Randal Ren MD on 09/18/2023 7:56 AM [facility] Station ID: [id number]
[2023-09-18] MEDS ORDERED: ACETAMINOPHEN 325 MG TABLET PO STA (09:55)
[2023-09-18] MEDS ORDERED: HYDROmorphone 1 MG/ML CARPUJECT IVP STA (09:55)
[2023-09-18 10:38] VITALS: BP 128/78; O2SAT 100
== END 2023-09-18 10:33 | disposition home or self-care (01) ==
LOC: ED 06:20
DX: R07.81 Pleurodynia (principal); I48.91 Unspecified atrial fibrillation; Z79.01 Long term (current) use of anticoagulants; F17.200 Nicotine dependence, unspecified, uncomplicated
CPT/HCPCS: 36415; 71045; 80053; 83690; 83735; 84484; 85025; 93005; 96374; 96375; 99284; A9270; J1170

== ENCOUNTER 2024-03-08 09:22 | Emergency (ER) | payer MEDICAID ==
[2024-03-08] MEDS: oxyCODONE 5 MG TABLET PO STA (10:29)
[2024-03-08] MEDS: HYDROmorphone 1 MG/ML CARPUJECT IM STA (10:30)
--- NOTE | 2024-03-08 10:43 | ED Physician Documentation ---
History of Present Illness - Stated complaint Stated Complaint: SHLDR PX - Chief complaint Chief Complaint: Ext Problem - History obtained from History obtained from: Patient - History of Present Illness Timing: Yesterday Pain level max: 9 Pain level now: 9 - Additonal information Additional information: 43-year-old male states that he was playing basketball yesterday and developed right shoulder pain. Does not recall any specific injury. Worse with movement, especially with trying to lift the shoulder above 90 degrees. States most of the pain is in the anterior aspect of the shoulder. No numbness or tingling. Has not had prior shoulder injuries. Worse with lying flat, moving or position changes. Review of Systems Musculoskeletal: denies: Neck pain, Back pain Neurologic: denies: Focal weakness, Numbness PD PAST MEDICAL HISTORY - Past Medical History Past Medical History: Yes Cardiovascular: [place], Atrial fibrillation, Other Respiratory: Asthma : None HEENT: None Derm: None - Past Surgical History Past Surgical History: Yes General: Other - Present Medications Home Medications: Ambulatory Orders Medication Instructions Recorded Confirmed Albuterol Sulfate [Proair Hfa 2 puffs INH BID PRN #1 hfa.aer.ad 07/31/18 05/25/22 Inhaler] Apixaban [Eliquis] 5 mg PO BID #60 tablet 07/31/18 05/25/22 Atorvastatin [Lipitor] 10 mg PO QPM #30 tablet 07/31/18 05/25/22 Nicotine 14 mg Patch [Nicoderm] 1 patch TOP DAILY #14 patch 07/31/18 Nitroglycerin [Nitrostat] 0.4 mg SL Q5MIN PRN #100 tablet 07/31/18 05/25/22 Spironolactone 12.5 mg PO MOWEFR #15 tablet 07/31/18 05/25/22 carvediloL [Coreg] 12.5 mg PO BID #60 tablet 07/31/18 05/25/22 lisinopriL [Zestril] 2.5 mg PO QPM #15 tablet 07/31/18 05/25/22 Cyclobenzaprine [Flexeril] 10 mg PO TID PRN #20 tablet 03/08/24 Oxycodone HCl/Acetaminophen 1 - 2 each PO Q6H PRN #14 tablet 03/08/24 [Percocet 5-325 mg Tablet] MDD 6 tabs - Allergies Allergies/Adverse Reactions: Allergies Allergy/AdvReac Type Severity Reaction Status Date / Time bee venom protein (honey bee) Allergy Severe Anaphylaxis Verified 09/18/23 06:33 Penicillins Allergy Severe Respiratory Verified 09/18/23 06:33 shellfish derived Allergy Anaphylaxis Verified 03/08/24 09:37 - Social History Does the pt smoke?: Yes Smoking Status: Current every day smoker Does the pt drink ETOH?: Yes Does the pt have substance abuse?: No - Immunizations Immunizations are current?: Yes Immunizations: TDAP >10years/unknown - POLST Patient has POLST: No POLST Status: Full Code PD ED PE NORMAL - Vitals Vital signs reviewed: Yes - General General: Alert and oriented X 3, No acute distress, Well developed/nourished - HEENT HEENT: Moist mucous membranes - Neck Neck: No bony TTP - Respiratory Respiratory: No respiratory distress - Derm Derm: Warm and dry - Extremities Extremities: Other - Neuro Neuro: Alert and oriented X 3 - Psych Psych: Normal mood, Normal affect - Free text exam Free text exam: R shoulder - Limited examination secondary to pain. Limited abduction to about 20 degrees short of horizontal. Limited internal and external rotation. Limited flexion and extension of the glenohumeral joint. Tender to palpation over the biceps head insertion of the right shoulder as well as the anterior aspect of the glenohumeral joint. No significant swelling. No clavicular tenderness. Neurovascular intact including the axillary nerve. Results - Vitals Vitals: Vital Signs - 24 hr 03/08/24 03/08/24 09:34 10:44 Temperature 36.4 C L Heart Rate 108 H 68 Respiratory 20 17 Rate Blood Pressure 141/95 H 136/105 H O2 Saturation 99 98 Oxygen O2 Source Room air - Rads (name of study) Right shoulder x-ray Relevant Findings:: Final report received, See rad report PD Medical Decision Making - ED course Complexity details: reviewed results, re-evaluated patient, considered differential, d/w patient ED course: No acute findings on x-ray of the right shoulder. Appears to be rotator cuff tendinitis. Placed in a sling for comfort. Given a dose of Dilaudid and will place on oxycodone for home as well as muscle relaxants. Patient does not have a PCP, recommend that he follow-up with orthopedics for further care. Patient counseled regarding signs and symptoms for which I believe and urgent re- evaluation would be necessary. Patient with good understanding of and agreement to plan and is comfortable going home at this time This document was made in part using voice recognition software. While efforts are made to proofread this document, sound alike and grammatical errors may occur. Departure - Departure Disposition: 01 Home, Self Care Clinical Impression: Rotator cuff tendinitis Qualifiers: Laterality: right Qualified Code(s): M75.81 - Other shoulder lesions, right shoulder Condition: Good Instructions: ED Tendinitis Rotator Cuff Follow-Up: Orthopedic Care [Provider Group] - Within 1 week Prescriptions: Cyclobenzaprine [Flexeril] 10 mg PO TID PRN #20 tablet PRN Reason: Spasms Oxycodone HCl/Acetaminophen [Percocet 5-325 mg Tablet] 1 - 2 each PO Q6H PRN #14 tablet MDD 6 tabs PRN Reason: pain Comments: Your prescription was sent to [facility] in [place]. Please follow-up with your doctor for further care. I have written down the number for orthopedics as well. You can call for an appointment. You can obtain a shoulder brace from [facility] that will help to keep pressure on the shoulder as well. Continue to gently stretch the shoulder at home. I am prescribing a short course of narcotic pain medication for you. These are potentially dangerous and addictive medications that should be used carefully. These medications may constipate you. Take an inxj-yuv-blrctdv stool softener (docusate) twice daily with plenty of water while taking these medications. If you go 24 hours without a bowel movement, take hupk-qkz-ztvloxf miralax, per package instructions. Do not drink or drive while taking these medications. If you received narcotic or sedating medications while in the emergency department, do not drive for 24 hours. Store this medication in a safe, secure place and out of reach of children. It is a violation of federal law to give or sell this medication to another person or to use in a manner other than prescribed. The ED will not refill narcotic prescriptions, including prescriptions lost or stolen. To dispose of unwanted medications: 1. [facility] at [address] in [place] has a medication drop box. They accept prescription medications (in pill form) Friday through Friday 9:00 a.m. to 5:00 p.m. 2. [facility] accepts prescription medications (in pill form only) for disposal year round. Call for more information. 3. Contact the [facility] for the next [facility] sponsored prescription drug collection event. , [phone], or [phone]; Forms: PCP List, Activity restrictions Discharge Date/Time: 03/08/24 10:52
[2024-03-08 10:48] VITALS: BP 136/105; O2SAT 98
--- NOTE | 2024-03-08 11:25 | XRAY Report ---
PROCEDURE: Shoulder 2+V RT INDICATIONS: shoulder pain, no injury TECHNIQUE: 3 views of the shoulder were acquired. COMPARISON: None. FINDINGS: Bones: No fractures or dislocations. No suspicious bony lesions. Visualized ribs appear intact. Soft tissues: No suspicious soft tissue calcifications. The visualized lungs are within normal limi ts. IMPRESSION: No acute bony abnormality. If pain persists with conservative management, consider repeat radiographs in 10-14 days or cross-sectional imaging. Reviewed by: Tennille Kim MD on 03/08/2024 11:24 AM PDT Approved by: Tennille Kim MD on 03/08/2024 11:24 AM PDT Station ID: [id number]
== END 2024-03-08 10:52 | disposition home or self-care (01) ==
LOC: ED 09:22
DX: M75.81 Other shoulder lesions, right shoulder (principal); I48.91 Unspecified atrial fibrillation; I25.2 Old myocardial infarction; F17.200 Nicotine dependence, unspecified, uncomplicated; Z79.899 Other long term (current) drug therapy; Z79.01 Long term (current) use of anticoagulants
CPT/HCPCS: 73030; 96372; 99283; 99284; A9270; J1170

== ENCOUNTER 2024-03-16 07:53 | Outpatient (CLI) | payer MEDICAID ==
--- NOTE | 2024-03-16 12:49 | XRAY Report ---
PROCEDURE: Shoulder 1V RT INDICATIONS: SHOULDER PAIN TECHNIQUE: 1 views of the shoulder were acquired. COMPARISON: Right shoulder radiograph 03/08/2024. FINDINGS: Bones: No fractures demonstrated. No dislocations. No suspicious bony lesions. Visualized ribs oracio ear intact. Soft tissues: No suspicious soft tissue calcifications. The visualized lungs are within normal limi ts. IMPRESSION: No fracture identified. Reviewed by: Mario Tilley MD on 03/16/2024 12:48 PM PDT Approved by: Mario Tilley MD on 03/16/2024 12:48 PM PDT Station ID: [id number]
== END 2024-03-16 07:54 | disposition home or self-care (01) ==
LOC: DI 07:53
PROVIDERS: ATTEND Physician Assistant Surgical
DX: M25.511 Pain in right shoulder (principal)